=== PATIENT | female | born 1985 | race Caucasian/White ===

== ENCOUNTER 2016-08-03 11:20 | Inpatient (IN) | payer BC ==
[~2016-08-03] VITALS: Ht 167.6 cm; Wt 107.5 kg
--- NOTE | ~2016-08-03 | HP ---
ADMIT: 08/03/2016 RM/LOC: 218 [facility] MR#: [id number] [address] VIVIAN REDD [address] [place] [address] Pre-OP History and Physical SEX: F AGE: 31 : 1985 DATE OF SERVICE: PRINCIPAL DIAGNOSES: 1. Intrauterine at 36 and 1/2 weeks' estimated gestational age. 2. Diabetes type 1, on Humalog pump, well controlled. 3. Chronic hypertension. 4. Superimposed preeclampsia, severe by blood pressures. HISTORY OF THE PRESENT ILLNESS: The patient is a 31-year-old white female, 2, para 1-0-0-1, who presents at 36 and 1/2 weeks' estimated gestational age for a nonstress test secondary to her chronic hypertension and type 1 diabetes. The patient states that overall she had felt unwell the morning of admission. On evaluation, she has a reactive nonstress test; however, her blood pressures were running severe range in the 160s over one teens. She had a 24-hour urinalysis result 2 days before her presentation to the hospital, which had revealed 900 mg of protein in a 24-hour urine specimen. PREVIOUS MEDICAL HISTORY: As above noted, with the type 1 diabetes and chronic hypertension, she also has a history of irritable bowel syndrome. MEDICATIONS: The patient takes: 1. Baby aspirin a day. 2. Insulin pump with basal rate and boluses program by the patient. 3. Labetalol 100 mg one tablet twice daily. 4. Protonix 40 mg daily. ALLERGIES: SHE STATES SHE HAS INTOLERANCE TO BIAXIN AND CIPRO WHICH CAUSE VOMITING. SOCIAL HISTORY: She drinks socially, states she is a former smoker, but quit in 2010. Denies any drug use. FAMILY HISTORY: Significant for hypertension, diabetes, and colon cancer. PHYSICAL EXAMINATION: GENERAL: The patient is a well-developed, well- nourished, obese white female. Alert, oriented, in no apparent distress with normal stream of thought content of speech. HEART: Regular rate and rhythm without murmurs, rubs, or gallops. LUNGS: Clear to auscultation bilaterally. ABDOMEN: Soft, gravid. heart tones are reassuring. No uterine contractions. ASSESSMENT: 1. Intrauterine at 36 and 1/2 weeks' estimated gestational age. 2. Type 1 diabetes, well controlled. 3. Chronic hypertension. 4. Superimposed preeclampsia, severe. ADMIT: 08/03/2016 RM/LOC: 218 [facility] MR#: [id number] [address] TRAMAINE VIVIAN L [address] [place] [address] Pre-OP History and Physical SEX: F AGE: 31 : 1985 The patient had previously been scheduled for an elective repeat primary low transverse section on after 37 weeks. We discussed management options with the patient, given her severe range blood pressures. We will plan on doing her delivery today with a primary low transverse section. We discussed risks involved with surgery including risks of infection, risk of bleeding with possible need for blood transfusion, and the attendant infectious risks inherent in blood transfusion. We also discussed risk of damage to other organs including, but not limited to, bowel, bladder, major blood vessels, and ureters with possible need for additional surgery and repair should such damage occur. The patient voiced understanding of the risks, benefits, and alternatives to the proposed procedure and desires to proceed with an elective primary low-transverse section. Robbie Rothman MD/ jadyn JOB #: [id number] CC: Michelle Root, Attending Physician Michelle Root, Family Physician
--- NOTE | 2016-08-04 09:39 | OR ---
ADMIT: 08/03/2016 RM/LOC: 218 [facility] MR#: [id number] [address] VIVIAN REDD [address] [place] [address] Operative/Delivery Room Report SEX: F AGE: 31 : 1985 SURGERY DATE: 08/03/2016 SURGEON: Robbie Rothman MD PRINCIPAL DIAGNOSES: 1. Intrauterine at 36 and 1/2 weeks' estimated gestational age. 2. Type 1 diabetes. 3. Chronic hypertension. 4. Superimposed preeclampsia severe by blood pressures. POSTOPERATIVE DIAGNOSES: 1. Intrauterine at 36 and 1/2 weeks' estimated gestational age. 2. Type 1 diabetes. 3. Chronic hypertension. 4. Superimposed preeclampsia severe by blood pressures. 5. Polyhydramnios. PROCEDURE: Primary low transverse section. WAREHOUSE PACKER: Petros Nichols M.D. INDICATION: The patient is a 31-year-old white female, 2, para 1, who presented with complaints of generalized malaise for a nonstress test, was noted to have reassuring nonstress test. However, her blood pressures were in the 160s over one teens, severe range. The patient had previous workups for superimposed preeclampsia, most recent protein measurement here was 900 mg in a 24-hour urine collection. ANESTHESIA: Spinal. ESTIMATED BLOOD LOSS: 600 mL. COMPLICATIONS: None. FINDINGS: Viable female , 9 pounds 5 ounces with scores of 6 at 1 minute and 7 at 5 minutes with greater than normal amount of amniotic fluid in cephalic presentation. PROCEDURE IN DETAIL: The patient was taken to the operating room. She was prepped and draped in the usual fashion in dorsal supine position with a leftward tilt. A transverse skin incision was made with a scalpel and carried through sharply to the underlying layer of fascia. The fascia was nicked in the midline and the fascial incision was extended laterally with Cornejo scissors. Fascia was dissected off the underlying rectus muscles. The rectus muscles were in the midline. The parietal peritoneum was identified, tented up with Nirmala clamps, and entered sharply with Cornejo scissors. This incision was then extended superiorly and inferiorly with good visualization of the bladder. Bladder blade was then inserted. The bladder flap was created with a combination of sharp and blunt dissection. Uterus was ADMIT: 08/03/2016 RM/LOC: 218 [facility] MR#: [id number] [address] VIVIAN REDD [address] [place] [address] Operative/Delivery Room Report SEX: F AGE: 31 : 1985 then nicked in the midline and the uterine incision was extended laterally with blunt digital dissection. Infant's head was then delivered atraumatically. Neck was examined for nuchal cord and none was noted. The anterior followed by the posterior shoulders were delivered, followed by expulsion of the remainder of the infant. Mouth and nose were then cleared. Cord was clamped x2, cut, and the infant was handed off to the waiting evp managing director. The placenta was then delivered intact with normal appearance. The endometrial cavity was then swept with a moist laparotomy sponge to remove any remaining products of conception. The uterine incision was then reapproximated with a running locked length of 0 Vicryl, with good hemostasis noted. The patient's abdomen was then suctioned. The uterus was returned to the patient's abdomen. The paracolic gutters were cleared of all clots and debris. Uterine incision was again inspected and noted to be hemostatic. The subfascial compartments were inspected and noted to be hemostatic. The fascia was then reapproximated with a running length of 0 Vicryl. Subcutaneous tissue was then inspected and noted to be hemostatic and was reapproximated with several interrupted sutures of 3-0 plain gut, and the skin was closed with Insorb subcuticular anika. The patient tolerated the procedure well, was taken to recovery room in stable condition. All sponge, instrument, and needle counts were correct. Robbie Rothman MD/ jadyn JOB #: [id number] CC: Michelle Root, Attending Physician Michelle Root, Family Physician
[2016-08-08] MEDS ORDERED: PERCOCET 5 DPS1 TAB PO (18:36)
[2016-08-08] MEDS ORDERED: FEOSOL-DPS325 MG PO (18:36)
[2016-08-08] MEDS ORDERED: MOTRIN-DPS800 MG PO (18:36)
[2016-08-08] MEDS ORDERED: COLACE-DPS100 MG PO (18:36)
[2016-08-08] MEDS ORDERED: NOVOLIN-N,100 UNITS/ SQ (18:36)
[2016-08-08] MEDS ORDERED: PROTONIX40 MG PO (18:36)
[2016-08-08] MEDS ORDERED: NIPPLECREAM TP (18:37)
--- NOTE | 2016-08-13 11:36 | HP ---
ADMIT: 08/03/2016 RM/LOC: 218 [facility] MR#: [id number] [address] VIVIAN REDD [address] [place] [address] History and Physical SEX: F AGE: 31 : 1985 DATE OF SERVICE: CHIEF COMPLAINT/HISTORY OF PRESENT ILLNESS: This 31-year-old female was admitted for a by Dr. Rothman, and I was asked to see the patient for her diabetes. The patient had insulin-dependent type 1 diabetes that began approximately 8 to 10 years ago. She has been on the insulin pump for the last 8 years and has been really well controlled since then. Her hemoglobin A1c was under 7 on this admission. She has no history of diabetic retinopathy nor diabetic nephropathy. Previous medical history has been good except for the type 1 diabetes mellitus. The patient actually is intolerant to Biaxin and Cipro. The patient has been on the insulin pump with varying doses of NovoLog insulin depending on the blood sugars and she also gives herself boluses depending on her on carbohydrate intake. MEDICATIONS: Include: 1. Aspirin. 2. Insulin pump. 3. She has been on labetalol 100 mg b.i.d. for hypertension. 4. Protonix 40 mg daily. SOCIAL HISTORY: The patient has remote history of smoking, but did quit approximately 6 years ago. She takes an occasional drink of alcohol. No illicit drugs. FAMILY HISTORY: Includes diabetes as well as colon cancer and hypertension. REVIEW OF SYSTEMS: HEENT: The patient wears glasses. She has no diabetic retinopathy. CARDIORESPIRATORY: The patient has a history of hypertension. There have been no chest pains, dyspnea, congestive heart failure, myocardial infarctions, and no current smoking. Also, no history of pneumonia. GASTROINTESTINAL: No nausea, vomiting, bloody stools, or diarrhea. The patient does have a history of irritable bowel syndrome GENITOURINARY: The patient has no history of diabetic nephropathy. She had some preeclampsia, 900 mg of protein in a 24-hour urine specimen. MUSCULOSKELETAL: No significant history. PHYSICAL EXAMINATION: VITAL SIGNS: Blood pressure is 110/70, respirations are 12, pulse is 70 and regular. GENERAL: The patient is a well-nourished, well-developed female, in no acute distress. She is alert, cooperative, and oriented x3. HEENT: Head - normocephalic without exostoses. SAHRA. Throat within normal limits. NECK: Neck veins not distended. Thyroid not enlarged. CHEST: Clear to percussion and auscultation. ADMIT: 08/03/2016 RM/LOC: 218 [facility] MR#: [id number] [address] VIVIAN REDD [address] [place] [id number] History and Physical SEX: F AGE: 31 : 1985 HEART: Regular rhythm with no murmur heard. No clinical evidence of cardiomegaly. ABDOMEN: Soft, nontender. Liver is not enlarged. Spleen is not palpable. No abnormal masses are present. She is postop . GENITALIA: Deferred. EXTREMITIES: No cyanosis, clubbing or edema. ASSESSMENT: 1. Type 1 diabetes mellitus, well controlled. 2. Hypertension. 3. Status post eclampsia. 4. Cipro and Biaxin intolerance. Logan Suarez MD/ modl JOB #: [id number] CC: Michelle Root, Attending Physician Michelle Root, Family Physician
--- NOTE | 2016-09-23 09:02 | DS ---
ADMIT: 08/03/2016 RM/LOC: 218 [facility] MR#: [id number] [address] VIVIAN REDD [address] [place] [address] General Discharge Summary SEX: F AGE: 31 : 1985 ADMISSION DATE: 08/03/2016 DISCHARGE DATE: 08/07/2016 PRIMARY DIAGNOSES: 1. Status post low transverse section. 2. Diabetes type 1. 3. Chronic hypertension. 4. Superimposed severe preeclampsia. PROCEDURES PERFORMED: On 08/03/2016, low transverse section with delivery of a viable female , weighing 9 pounds 5 ounces with scores of 6 at 1 minute and 7 at 5 minutes. HOSPITAL COURSE: This is a 31-year-old, white female, 2, para 1, who [facility] with an intrauterine at 36 and 3/7th weeks gestation for a scheduled nonstress test. At that time, she was noted to also complaining of generalized malaise. Her blood pressures were noted to be in the severe range and she had previously had a 24-hour urine demonstrating greater than 900 mg of protein. Given these findings, the decision was made to proceed with delivery. She was also known to have a macrosomic , based off ultrasound weight estimates. The mode of delivery was then discussed and she elected to proceed with a primary section. She did undergo a primary low transverse section without any complications. Postoperatively, she was placed on magnesium sulfate for 24 hours. Her blood sugars were managed using her own insulin pump. She did have a hemorrhage following delivery that did require administration of misoprostol rectally. Her postoperative hemoglobin was 6.4, on postoperative day #2. Consultation with Internal Medicine was obtained for diabetes management. She did have a hemoglobin repeated on postoperative day #2 that had decreased to 5.7. She was given 1 unit of packed red blood cells. On postop day #3, her hemoglobin was 6.2. She continued to feel well and was asymptomatic. She was deemed stable for discharge on postoperative day #4 and dismissed to home. DISCHARGE INSTRUCTIONS: She was advised to call with signs or symptoms of infection including temperature greater than 100.4 degrees, vaginal bleeding greater than 1 pad an hour, erythema or drainage of her abdominal incision. She was instructed to follow up in 2-3 days for a blood pressure check and again in 2 weeks for an incision check and 6 weeks for a check. ADMIT: 08/03/2016 RM/LOC: 218 [facility] MR#: [id number] [id number] [address] VIVIAN REDD [address] [place] [address] General Discharge Summary SEX: F AGE: 31 : 1985 DISCHARGE MEDICATIONS: She was dismissed on: 1. Ferrous sulfate 325 mg 1 p.o. t.i.d. 2. Colace 100 mg 1 p.o. b.i.d. 3. Motrin 800 mg 1 p.o. q.8 hours p.r.n. 4. Percocet 5/325 mg 1-2 p.o. q.4 to 6 hours p.r.n. 5. She was advised to continue her insulin pump as previously instructed by Internal Medicine. CONDITION ON DISCHARGE: Stable. DISPOSITION: The patient was dismissed to home. Michelle Root MD/ jadyn JOB #: [id number] CC: Michelle Root MD, Attending Physician Michelle Root MD, Family Physician
== END 2016-08-07 12:00 | disposition home or self-care (01) | DRG 765 ==
LOC: BC 11:20 → 2LDRP 11:20 → BC 08-28 08:00
PROVIDERS: ADMIT Obstetrics & Gynecology
PROC: 10D00Z1 Extraction of Products of Conception, Low, Open Approach (ICD-10-PCS; principal; 2016-08-03)
DX: O14.14 Severe pre-eclampsia complicating childbirth (principal); D62 Acute posthemorrhagic anemia; O24.02 Pre-existing type 1 diabetes mellitus, in childbirth; O40.3XX0 Polyhydramnios, third trimester, not applicable or unspecified; O90.81 Anemia of the puerperium; E10.9 Type 1 diabetes mellitus without complications; O34.211 Maternal care for low transverse scar from previous cesarean delivery; O99.62 Diseases of the digestive system complicating childbirth; K58.9 Irritable bowel syndrome, unspecified; Z96.41 Presence of insulin pump (external) (internal); Z87.891 Personal history of nicotine dependence; Z83.3 Family history of diabetes mellitus; Z82.49 Family history of ischemic heart disease and other diseases of the circulatory system; Z3A.36 36 weeks gestation of pregnancy; Z37.0 Single live birth